=== PATIENT | female | born 1990 | race African-American/Black ===

== ENCOUNTER 2025-01-01 20:14 | Emergency (ER) | payer MEDICAID ==
[~2025-01-01] VITALS: Ht 121.9 cm; Wt 65.0 kg
[~2025-01-01 20:14] MED LIST: APIX2.5T PO; DIPH25TA62 PO; INSLIS SUBCUT; LISI20TA31 MT
[2025-01-01 20:20] VITALS: O2SAT 100
[2025-01-01] MEDS: ONDANSETRON HCL 4MG/2ML INJ IV ONE (21:24)
[2025-01-01] MEDS: DIPHENHYDRAMINE 50MG/ML VIAL IV ONE (21:24)
[2025-01-01] MEDS: MORPHINE SULFATE 4 MG/ML INJ (FOR IV/IM USE) IV ONE ×2 (21:24→22:49)
[2025-01-01] MEDS: ACETAMINOPHEN 500MG TABLET PO ONE (21:25)
[2025-01-01] MEDS: SODIUM CHLORIDE 0.9% 1,000 ML IV ONE (22:36)
[2025-01-01 23:50] LABS: BG BASE EXCESS 1.6 mmol/L (-2.0-3.0); BG CARBOXYHEMOGLOBIN 0.3 % (0.5-1.5); BG DEOXYHEMOGLOBIN 1.8 % (0.0-5.0); BG HCO3 ACT 21.9 mmol/L (21.0-28.0); BG METHEMOGLOBIN 0.2 % (0.5-1.5); BG OXYGEN SATURATION 98.2 % (94.0-98.0); BG OXYHEMOGLOBIN 97.7 % (94.0-98.0); BG PCO2 23.5 mmHg (32.0-45.0); BG PH 7.588 (7.350-7.450); BG PO2 99.1 mmHg (83.0-108.0); BG SAMPLE SITE RIGHT RADIAL; BG TOTAL HEMOGLOBIN 12.7 g/dL (12.0-16.0); BG VENT MODE ROOM AIR
[2025-01-02 00:45] LABS: BASOPHILS % 0.7 % (0.0-2.0); EOSINOPHILS % 0.6 % (0.0-5.0); HEMATOCRIT. 38.3 % (36.0-48.0); HEMOGLOBIN. 12.3 g/dL (12.0-16.0); LYMPHOCYTES % 13.6 % (20.0-50.0); MEAN PLATELET VOLUME 8.9 fl (7.4-10.4); MONOCYTES % 5.8 % (2.0-8.0); NEUTROPHILS % 79.3 % (40.0-76.0); PLATELET 408 x1000/uL (130-400); RED BLOOD CELL COUNT 4.48 mill/uL (4.2-5.4); RED CELL DISTRIBUTION WIDTH 16.4 % (11.6-14.6)
[2025-01-02 00:54] LABS: CREATININE 0.8 mg/dL (0.6-1.0)
[2025-01-02 00:55] LABS: TROPONIN I HIGH SENSITIVITY 4 ng/L (3.0-34); UREA NITROGEN BLOOD 9 mg/dL (9-23)
[2025-01-02 00:56] LABS: HCG SCREEN NEGATIVE
[2025-01-02 00:56] LABS: ASPARTATE AMINOTRANSFERASE 9 IU/L (<34)
[2025-01-02 00:57] LABS: BILIRUBIN DIRECT 0.1 mg/dL (<=3.0); BILIRUBIN TOTAL 0.5 mg/dL (0.1-1.0); PHOSPHORUS 1.9 mg/dL (2.5-4.9); PROTEIN TOTAL 7.2 g/dL (6.0-8.3)
[2025-01-02 00:58] LABS: INR 1.3
[2025-01-02] MEDS: MORPHINE SULFATE 4 MG/ML INJ (FOR IV/IM USE) IV ONE (01:10)
[2025-01-02] MEDS ORDERED: ACETAMINOPHEN 650MG/20.3ML UDC GT PRN (01:30)
[2025-01-02] MEDS ORDERED: CLONIDINE 0.1MG TABLET PO PRN (01:30)
[2025-01-02] MEDS ORDERED: SODIUM CHLORIDE 0.9% 1,000 ML IV SCH (01:30)
[2025-01-02] MEDS ORDERED: DEXTROSE 50% WATER 50ML SYRINGE IV PRN (01:30)
[2025-01-02] MEDS ORDERED: IPRATROPIUM/ALBUTEROL 0.5-3(2.5)MG/3ML NEB HHN PRN (01:30)
[2025-01-02] MEDS ORDERED: ACETAMINOPHEN 325MG TABLET PO PRN (01:30)
[2025-01-02] MEDS ORDERED: KETOROLAC 30MG/ML VIAL IV PRN (01:30)
[2025-01-02] MEDS ORDERED: ONDANSETRON HCL 4MG/2ML INJ IV PRN (01:30)
[2025-01-02] MEDS ORDERED: INSULIN GLARGINE 100 UNITS/ML SUBCUT NR (01:30)
[2025-01-02] MEDS: DIPHENHYDRAMINE 50MG/ML VIAL IV ONE (02:24)
[2025-01-02 02:33] VITALS: BP 160/88; PULSE 102; RESP 20; TEMP 36.2; O2SAT 100
[2025-01-02] MEDS: INSULIN REGULAR (HUMULIN R) 1000UNITS/10ML VIAL SUBCUT NR (02:42)
[2025-01-02] MEDS: MAGNESIUM 2 G PREMIX 50 ML IV NR (03:13)
[2025-01-02] MEDS: POTASSIUM PHOSPHATE 30 MMOL in SODIUM CHLORIDE 0.9% 490 ML IV NR (03:13)
[2025-01-02] MEDS: ENOXAPARIN 80MG/0.8ML SYR SUBCUT SCH (03:27)
[2025-01-02 03:37] LABS: CREATININE 0.8 mg/dL (0.6-1.0); TRIGLYCERIDE 149.0 mg/dL (0-150); UREA NITROGEN BLOOD 9 mg/dL (9-23)
[2025-01-02 03:38] LABS: LDL CHOLESTEROL 158.0 mg/dL (5-100)
[2025-01-02] MEDS ORDERED: INSULIN LISPRO 100 UNITS/ML SUBCUT SCH ×2 (07:50→08:20)
[2025-01-02] MEDS ORDERED: BLOOD SUGAR DIAGNOSTIC STRIP TEST SCH (09:00)
[2025-01-02] MEDS ORDERED: LISINOPRIL 20MG TABLET PO SCH (09:00)
[2025-01-02] MEDS ORDERED: PANTOPRAZOLE SODIUM 40 MG/VIAL IV SCH (09:00)
[2025-01-02] MEDS ORDERED: ATORVASTATIN CALCIUM 20MG TABLET PO SCH (21:00)
[2025-01-02] MEDS ORDERED: INSULIN GLARGINE 100 UNITS/ML SUBCUT SCH (22:00)
== END 2025-01-02 06:10 | disposition left against medical advice (07) ==
LOC: ER 20:14 → EDBEDREQDT 01-02 01:43 → EDBEDREQ 01-02 01:43 → EDBEDREQTM 01-02 01:43 → ER 01-02 06:10 → CMPBEDREQ 01-02 08:22
DX: D57.00 Hb-SS disease with crisis, unspecified (principal); E10.10 Type 1 diabetes mellitus with ketoacidosis without coma; R11.2 Nausea with vomiting, unspecified; E78.5 Hyperlipidemia, unspecified; E83.42 Hypomagnesemia; E83.39 Other disorders of phosphorus metabolism; I10 Essential (primary) hypertension; I25.2 Old myocardial infarction; Z89.519 Acquired absence of unspecified leg below knee; Z79.899 Other long term (current) drug therapy; Z99.3 Dependence on wheelchair; Z79.4 Long term (current) use of insulin; Z79.01 Long term (current) use of anticoagulants; Z53.29 Procedure and treatment not carried out because of patient's decision for other reasons
CPT/HCPCS: 80076; 80048 ×2; 82010; 80320; 82550; 84703; 83605; 83735; 84100; 85025; 85044; 85610; 85730; 84484; 36415; 71045; 82805; 82375; 96361; 96375; 96376 ×2; 99285; 36600; 80061; 82962; 86850; 86900; 86901; 96368; 96365; 96372; J1200 ×2; J2405; J2270 ×2; J7030; Z7610 ×4; J1650; J1815; J3475; J3490; J7040; G0480

== ENCOUNTER 2025-03-08 20:39 | Inpatient (IN) | payer SELFPAY ==
[~2025-03-08] VITALS: Ht 121.9 cm; Wt 68.0 kg
[2025-03-08 20:44] VITALS: O2SAT 98
[2025-03-08] MEDS: METOCLOPRAMIDE HCL 10MG/2ML VIAL IV ONE (21:45)
[2025-03-08] MEDS: HYDROMORPHONE HCL/PF 2MG/ML INJ IV ONE (21:45)
[2025-03-08] MEDS: DIPHENHYDRAMINE 50MG/ML VIAL IV ONE (21:45)
[2025-03-08] MEDS: SODIUM CHLORIDE 0.9% (SEPSIS BOLUS) IV ONE (21:46)
[2025-03-08] MEDS: PIPERACILLIN/TAZO 3.375G/50ML 50 ML IV ONE (21:46)
[2025-03-08] MEDS: VANCOMYCIN 1G PREMIX 200 ML IV ONE (22:16)
[2025-03-08 22:47] LABS: BASOPHILS % 0.5 % (0.0-2.0); EOSINOPHILS % 1.6 % (0.0-5.0); HEMATOCRIT. 42.8 % (36.0-48.0); HEMOGLOBIN. 14.1 g/dL (12.0-16.0); LYMPHOCYTES % 20.0 % (20.0-50.0); MEAN PLATELET VOLUME 9.5 fl (7.4-10.4); MONOCYTES % 9.1 % (2.0-8.0); NEUTROPHILS % 68.8 % (40.0-76.0); PLATELET 332 x1000/uL (130-400); RED BLOOD CELL COUNT 4.88 mill/uL (4.2-5.4); RED CELL DISTRIBUTION WIDTH 15.4 % (11.6-14.6)
[2025-03-08 23:03] LABS: CREATININE 0.9 mg/dL (0.6-1.0); UREA NITROGEN BLOOD 8 mg/dL (9-23)
[2025-03-08 23:05] LABS: ASPARTATE AMINOTRANSFERASE 15 IU/L (<34); BILIRUBIN DIRECT 0.2 mg/dL (<=3.0)
[2025-03-08 23:06] LABS: BILIRUBIN TOTAL 0.9 mg/dL (0.1-1.0); PROTEIN TOTAL 8.3 g/dL (6.0-8.3)
[2025-03-08 23:11] LABS: INR 1.0
[2025-03-08] MEDS: INSULIN REGULAR (HUMULIN R) 1000UNITS/10ML VIAL SUBCUT ONE (23:31)
[2025-03-08 23:51] LABS: BG DEOXYHEMOGLOBIN 3.4 % (0.0-5.0)
[2025-03-09] MEDS: HYDROMORPHONE HCL/PF 1MG/ML INJ IV NR (02:12)
[2025-03-09 02:48] VITALS: BP 132/74; PULSE 104; RESP 18; TEMP 36.2; O2SAT 97
[2025-03-09 03:30] VITALS: BP 132/74; PULSE 104; RESP 20; TEMP 36.2512
[2025-03-09] MEDS ORDERED: DEXTROSE 50% WATER 50ML SYRINGE IV PRN (03:30)
[2025-03-09] MEDS ORDERED: NALOXONE HCL 0.4MG/ML VIAL IV PRN (03:45)
[2025-03-09 04:00] VITALS: BP 115/66; PULSE 75; RESP 18; TEMP 36.2; O2SAT 98
[2025-03-09] MEDS: FLUCONAZOLE 150MG TABLET PO NR (04:11)
[2025-03-09] MEDS: DIPHENHYDRAMINE 50MG/ML VIAL IV PRN (04:21)
[2025-03-09] MEDS: MORPHINE SULFATE 2 MG/ML INJ (NOT FOR IM USE) IV PRN (05:03)
[2025-03-09] MEDS: BLOOD SUGAR DIAGNOSTIC STRIP TEST SCH (06:44)
[2025-03-09] MEDS: INSULIN LISPRO 100 UNITS/ML SUBCUT SCH (06:46)
[2025-03-09 08:00] VITALS: BP 126/78; PULSE 95; RESP 18; TEMP 36.7; O2SAT 100
[2025-03-09] MEDS: ENOXAPARIN 40MG/0.4ML SYR SUBCUT SCH (08:48)
[2025-03-09] MEDS: LOSARTAN 50 MG TABLET PO SCH (08:50)
[2025-03-09] MEDS: INSULIN GLARGINE 100 UNITS/ML SUBCUT SCH (10:40)
[2025-03-09 12:00] VITALS: BP 103/74; PULSE 79; RESP 18; TEMP 36.4; O2SAT 100
[2025-03-09 13:35] VITALS: BP 112/78; PULSE 81; RESP 18
[2025-03-09] MEDS ORDERED: ACETAMINOPHEN 325MG TABLET PO PRN ×2 (15:30)
[2025-03-09] MEDS ORDERED: IPRATROPIUM/ALBUTEROL 0.5-3(2.5)MG/3ML NEB HHN PRN (15:30)
[2025-03-09] MEDS ORDERED: ONDANSETRON HCL 4MG/2ML INJ IV PRN (15:30)
[2025-03-09] MEDS ORDERED: SODIUM CHLORIDE 0.9% 1,000 ML IV SCH (15:30)
[2025-03-09] MEDS ORDERED: DOCUSATE SODIUM 100MG CAPSULE PO PRN (15:30)
[2025-03-09] MEDS ORDERED: CLONIDINE 0.1MG TABLET PO PRN (15:30)
[2025-03-09] MEDS ORDERED: PIPERACILLIN/TAZO 3.375G/50ML 50 ML IV SCH (16:00)
== END 2025-03-09 18:50 | disposition left against medical advice (07) | DRG 531 ==
LOC: ER 20:39 → 8WST 03-09 00:05 → EDBEDREQDT 03-09 00:08 → EDBEDREQTM 03-09 00:08 → EDBEDREQ 03-09 00:08 → ENRESERV 03-09 01:50
PROVIDERS: ADMIT Internal Medicine; ATTEND Internal Medicine
DX: N76.4 Abscess of vulva (principal); D57.00 Hb-SS disease with crisis, unspecified; Z89.611 Acquired absence of right leg above knee; Z79.01 Long term (current) use of anticoagulants; I10 Essential (primary) hypertension; E11.9 Type 2 diabetes mellitus without complications; L72.3 Sebaceous cyst; I25.2 Old myocardial infarction; R11.2 Nausea with vomiting, unspecified; Z53.29 Procedure and treatment not carried out because of patient's decision for other reasons; Z79.4 Long term (current) use of insulin; Z79.899 Other long term (current) drug therapy; Z89.511 Acquired absence of right leg below knee; Z89.512 Acquired absence of left leg below knee; Z89.612 Acquired absence of left leg above knee
CPT/HCPCS: 36415; 71045; 80048; 80076; 82010; 82375; 82803; 82962; 83605; 83735; 84145; 85025; 93005; 96365; 96367; 96372; 96375; 99291; J1171; J1200; J1650; J1815; J2270; J2543; J2765; J3373; J7030